=== PATIENT | female | born 1935 | race Caucasian/White ===

== ENCOUNTER 2018-10-21 11:04 | Inpatient (IN) ==
[2018-10-21 11:57] LABS: Apearance,Urine CLEAR (Clear); Bilirubin,Urine Negative (Negative); Blood, Urine Negative (Negative); Glucose,Urine (UA) Negative (Negative); Ketones,Urine 5 mg/dL (Negative); Mucus,Urine Occasional /LPF (Occasional); Nitrite,Urine Negative (Negative); Protein,Urine 30 MG/DL; RBC,Urine 1 /HPF (0-4); Urine Color Yellow (Yellow); Urine Specific Gravity 1.017 (1.001-1.035); WBC,Urine 1 /HPF (0-6)
[2018-10-21 13:08] LABS: Basophils # 0.1 10*3/uL (0.0-0.2); Basophils % 0.8 % (0.0-0.8); Eosinophils # 0.3 10*3/uL (0.0-0.87); Hematocrit 40.4 VOL% (35.7-47.0); Hemoglobin 11.3 GM/DL (12.0-16.0); Immature Granulocytes % 0.7 %; Immature Granulocytes Absolute 0.07 #; Lymphocytes # 1.9 10*3/uL (1.4-4.0); Lymphocytes % 18.4 % (21.3-54.2); Mean Corpuscular Hemoglobin 30 PG (27-34); Mean Corpuscular Volume 106.3 FL (87-102); Mean Platelet Volume 9.3 FL (9.6-12.0); Monocytes # 0.6 10*3/uL (0.11-0.8); Monocytes % 6.1 % (1.7-12.7); Neutrophils # 7.3 10*3/uL (1.4-7.4); Platelet Count 242 T/CUMM (130-400); White Blood Count 10.3 T/CUMM (4-12)
[2018-10-21 13:35] LABS: Anisocytosis Slight; Hypochromasia Slight; Platelet Estimate Adequate
[2018-10-21 13:46] LABS: Alanine Aminotransferase < 9 U/L (13-56); Albumin 3.2 G/DL (3.4-5.0); Alkaline Phosphatase 136 U/L (45-117); Aspartate Amino Transferase 16 U/L (0-37); Bilirubin,Total < 0.39 MG/DL (0.2-1.0); Blood Urea Nitrogen 30 MG/DL (7-18); Calcium 9.6 MG/DL (8.5-10.1); Glucose 129 MG/DL (74-106); Osmolality,Calculated 290.1 MOS/KG (273-304); Potassium 4.4 MMOL/L (3.5-5.1); Sodium 142 MMOL/L (136-145); Total Protein 7.5 G/DL (6.4-8.3); Troponin I < 0.015 NG/ML (0.00-0.045)
[2018-10-21] MEDS ORDERED: ONDANSETRON 4 MG/2 ML VIAL IV PRN (15:05)
[2018-10-21] MEDS ORDERED: DEXTROSE 50% 25 GM/50 ML VIAL IV PRN (15:23)
[2018-10-21] MEDS ORDERED: GLUCAGON 1 MG VIAL IM PRN (15:23)
[2018-10-21] MEDS ORDERED: hydrALAZINE 20 MG/1 ML VIAL IV STA (15:24)
[2018-10-21] MEDS ORDERED: cefTRIAXone 1,000 MG VIAL IM SCH (16:30)
[2018-10-21 16:51] LABS: PT Patient Result 10.8 SECS; Partial Thromboplastin Time 22.5 SECS (0-40)
[2018-10-21] MEDS ORDERED: hydrALAZINE 20 MG/1 ML VIAL IV PRN (17:10)
[2018-10-21] MEDS: ENOXAPARIN 40 MG/0.4 ML SYRINGE SUBCUT SCH (17:13)
[2018-10-21] MEDS: INSULIN LISPRO 100 UNIT/ML SUBCUT SCH ×2 (17:16→21:05)
[2018-10-21] MEDS: SODIUM CHLORIDE 0.45% 1,000 ML IV SCH (17:22)
[2018-10-21] MEDS ORDERED: cefTRIAXone 1,000 MG VIAL IV SCH (17:50)
[2018-10-21] MEDS: GENTAMICIN 0.3% OPH SOLN 5 ML BOTTLE BOTH EYES SCH ×2 (18:00→21:06)
[2018-10-21] MEDS ORDERED: GENTAMICIN 0.3% OPH SOLN 5 ML BOTTLE BOTH EYES SCH (18:00)
[2018-10-21] MEDS ORDERED: cefTRIAXone 1,000 MG in SYRINGE 1 EACH IV SCH (18:30)
[2018-10-22] MEDS: GENTAMICIN 0.3% OPH SOLN 5 ML BOTTLE BOTH EYES SCH ×5 (01:45→17:56)
[2018-10-22] MEDS: SODIUM CHLORIDE 0.45% 1,000 ML IV SCH (05:16)
[2018-10-22 05:40] LABS: Albumin 2.9 G/DL (3.4-5.0); Bilirubin,Total 0.8 MG/DL (0.2-1.0); Calcium 8.9 MG/DL (8.5-10.1); Osmolality,Calculated 284.5 MOS/KG (273-304); Potassium 3.9 MMOL/L (3.5-5.1); Risk Ratio 5.12; Total Protein 6.7 G/DL (6.4-8.3); VLDL CHOLESTEROL 34.2 MG/DL
[2018-10-22] MEDS: INSULIN LISPRO 100 UNIT/ML SUBCUT SCH ×3 (08:06→17:56)
[2018-10-22] MEDS ORDERED: LORazepam 1 MG TABLET PO ONE (11:08)
[2018-10-22] MEDS: ENOXAPARIN 40 MG/0.4 ML SYRINGE SUBCUT SCH (15:40)
[2018-10-22 17:51] VITALS: BP 156/91
== END 2018-10-22 16:33 | DRG 690 ==
LOC: EDUNIT# → EDBD → N.ED 11:04 → SUPCPDRO 14:57 → SUATTDRO 14:57 → N.EDINP 14:57 → N.4E 15:42
PROVIDERS: ADMIT Internal Medicine; ATTEND Internal Medicine Geriatric Medicine

== ENCOUNTER 2018-11-26 10:01 | Inpatient (IN) ==
[2018-11-26] MEDS ORDERED: SODIUM CHLORIDE 0.9% 1,000 ML IV STA ×3 (10:36→13:23)
[2018-11-26 11:27] LABS: Amorphous Crystals,Urine Few /HPF (Few); Apearance,Urine CLOUDY (Clear); Bacteria,Urine Occasional /HPF (Few); Bilirubin,Urine Negative (Negative); Blood, Urine Moderate mg/dL (Negative); Glucose,Urine (UA) 150 mg/dL (Negative); Hyaline Casts,Urine 3 /LPF (0-3); Ketones,Urine 5 mg/dL (Negative); Mucus,Urine Occasional /LPF (Occasional); Nitrite,Urine Negative (Negative); Protein,Urine >=500 MG/DL; Red Blood Cell Casts,Urine 3 /LPF (<1); Urine Color Yellow (Yellow); Urine Specific Gravity 1.019 (1.001-1.035); Urine Urobilinogen < 2.0 EU/DL (0.2-1.0)
[2018-11-26 12:09] LABS: INR 1.1; PT Patient Result 12.1 SECS; Partial Thromboplastin Time 22.4 SECS (0-40)
[2018-11-26 12:20] LABS: Alanine Aminotransferase 15 U/L (13-56); Albumin 3.1 G/DL (3.4-5.0); Alkaline Phosphatase 88 U/L (45-117); Aspartate Amino Transferase 12 U/L (0-37); Basophils # 0.1 10*3/uL (0.0-0.2); Basophils % 0.3 % (0.0-0.8); Bilirubin,Total < 0.39 MG/DL (0.2-1.0); Blood Urea Nitrogen 63 MG/DL (7-18); Calcium 8.9 MG/DL (8.5-10.1); Glucose 446 MG/DL (74-106); Hematocrit 39.6 VOL% (35.7-47.0); Hemoglobin 11.6 GM/DL (12.0-16.0); Immature Granulocytes % 1.2 %; Immature Granulocytes Absolute 0.23 #; Lymphocytes # 1.2 10*3/uL (1.4-4.0); Lymphocytes % 6.4 % (21.3-54.2); Mean Corpuscular HGB Conc 29.3 GM/DL (32-36); Mean Corpuscular Volume 101.8 FL (87-102); Mean Platelet Volume 10.9 FL (9.6-12.0); Monocytes % 5.6 % (1.7-12.7); NRBC # 0.04 10*3/uL; Neutrophils % 86.5 % (38.7-73.9); Platelet Count 265 T/CUMM (130-400); Red Blood Count 3.89 MC/CUMM (3.8-5.5); Red Cell Distribution Width 15.4 % (9.3-17.3); Total Protein 7.1 G/DL (6.4-8.3); White Blood Count 19.4 T/CUMM (4-12)
[2018-11-26] MEDS ORDERED: PIPERACILLIN/TAZOBACTAM 3,375 MG in SODIUM CHLORIDE 0.9% 100 ML IV STA (13:22)
[2018-11-26] MEDS: SODIUM CHLORIDE 0.9% 1,000 ML IV SCH ×2 (13:40→20:38)
[2018-11-26] MEDS ORDERED: MAGNESIUM SULF RIDER 4 GM in PREMIX 1 EACH IV PRN (15:06)
[2018-11-26] MEDS ORDERED: DEXTROSE 50% 25 GM/50 ML SYRINGE IV PRN (15:06)
[2018-11-26] MEDS ORDERED: MAGNESIUM SULF RIDER 2 GM in PREMIX 1 EACH IV PRN (15:06)
[2018-11-26] MEDS ORDERED: GLUCAGON 1 MG VIAL IM PRN (15:06)
[2018-11-26] MEDS ORDERED: SODIUM CHLORIDE 0.9% 3,800 ML IV ONE (15:06)
[2018-11-26 15:15] LABS: ABG Base Excess -3.4 MMOL/L (-2.5-2.5); ABG HCO3 21.5 MMOL/L (20-26); ABG Oxygen Saturation 92.4 % (95-100); ABG PCO2 37.6 MM HG (35-48); ABG PH 7.365 (7.35-7.45); ABG PO2 67.9 MM HG (80-95); ABG TCO2 19.3 MMOL/L (23-27)
[2018-11-26] MEDS ORDERED: LACTATED RINGERS 1,000 ML IV SCH (15:30)
[2018-11-26] MEDS ORDERED: INSULIN REGULAR 100 UNIT/ML IV ONE (15:48)
[2018-11-26] MEDS: HEPARIN 5,000 UNIT/1 ML VIAL SUBCUT SCH ×2 (16:00→22:52)
[2018-11-26] MEDS: PIPERACILLIN/TAZOBACTAM 3,375 MG in SODIUM CHLORIDE 0.9% 100 ML IV SCH ×2 (17:25→17:26)
[2018-11-26] MEDS: POTASSIUM CHLORIDE RIDER 10 MEQ in PREMIX 1 EACH IV PRN ×3 (17:47→19:32)
[2018-11-26] MEDS ORDERED: INSULIN REGULAR 100 UNIT/ML SUBCUT SCH (18:00)
[2018-11-26] MEDS: INSULIN REGULAR 100 UNIT/ML SUBCUT SCH ×2 (21:23→21:25)
[2018-11-27] MEDS: INSULIN REGULAR 100 UNIT/ML SUBCUT SCH ×7 (01:28→23:20)
[2018-11-27] MEDS: PIPERACILLIN/TAZOBACTAM 3,375 MG in SODIUM CHLORIDE 0.9% 100 ML IV SCH ×2 (01:29→12:17)
[2018-11-27] MEDS: SODIUM CHLORIDE 0.9% 1,000 ML IV SCH (01:35)
[2018-11-27 04:29] LABS: Alanine Aminotransferase 16 U/L (13-56); Albumin 2.9 G/DL (3.4-5.0); Alkaline Phosphatase 72 U/L (45-117); Aspartate Amino Transferase 12 U/L (0-37); Bilirubin,Total < 0.39 MG/DL (0.2-1.0); Blood Urea Nitrogen 59 MG/DL (7-18); Calcium 7.9 MG/DL (8.5-10.1); Glucose 219 MG/DL (74-106); Total Protein 6.4 G/DL (6.4-8.3)
[2018-11-27 04:55] LABS: Basophils # 0.1 10*3/uL (0.0-0.2); Basophils % 0.3 % (0.0-0.8); Hematocrit 38.1 VOL% (35.7-47.0); Hemoglobin 10.6 GM/DL (12.0-16.0); Immature Granulocytes % 0.9 %; Lymphocytes # 2.7 10*3/uL (1.4-4.0); Lymphocytes % 11.9 % (21.3-54.2); Mean Corpuscular HGB Conc 27.8 GM/DL (32-36); Mean Corpuscular Volume 106.7 FL (87-102); Mean Platelet Volume 11.4 FL (9.6-12.0); Monocytes % 4.2 % (1.7-12.7); NRBC # 0.03 10*3/uL; Neutrophils % 82.7 % (38.7-73.9); Platelet Count 199 T/CUMM (130-400); Red Blood Count 3.57 MC/CUMM (3.8-5.5); Red Cell Distribution Width 15.6 % (9.3-17.3); White Blood Count 22.5 T/CUMM (4-12)
[2018-11-27] MEDS: POTASSIUM CHLORIDE RIDER 10 MEQ in PREMIX 1 EACH IV PRN ×4 (04:58→10:01)
[2018-11-27 05:11] LABS: Free T4 (Free Thyroxine) 0.74 NG/DL (0.76-1.46); Thyroid Stimulating Hormone 2.12 uIU/ml (0.358-3.74)
[2018-11-27 06:39] LABS: Anisocytosis 1+; Lymphocytes 15 % (20-55); Platelet Estimate Adequate; Segmented Neutrophils 79 % (50-85); Total Cells Counted 100
[2018-11-27] MEDS ORDERED: DILTIAZEM 25 MG/5 ML VIAL IV ONE (08:09)
[2018-11-27] MEDS: HEPARIN 5,000 UNIT/1 ML VIAL SUBCUT SCH ×3 (08:25→22:42)
[2018-11-27] MEDS: LACTULOSE 20 GM/30 ML UDCUP NG SCH ×2 (08:57→20:08)
[2018-11-27] MEDS: DEXTROSE 5% 1,000 ML IV SCH (09:00)
[2018-11-27] MEDS ORDERED: POTASSIUM PHOSPHATE 30 MMOL in SODIUM CHLORIDE 0.9% 250 ML IV ONE (11:00)
[2018-11-27 12:56] LABS: Amorphous Crystals,Urine Occasional /HPF (Few); Apearance,Urine CLOUDY (Clear); Bacteria,Urine Few /HPF (Few); Bilirubin,Urine Negative (Negative); Blood, Urine Large mg/dL (Negative); Glucose,Urine (UA) Negative (Negative); Ketones,Urine Negative (Negative); Mucus,Urine Few /LPF (Occasional); Nitrite,Urine Negative (Negative); Protein,Urine 100 MG/DL; RBC,Urine 7 /HPF (0-4); Red Blood Cell Casts,Urine 13 /LPF (<1); Urine Color Yellow (Yellow); Urine Specific Gravity 1.017 (1.001-1.035); Urine Urobilinogen < 2.0 EU/DL (0.2-1.0); WBC,Urine 69 /HPF (0-6)
[2018-11-27] MEDS ORDERED: METOPROLOL TARTRATE 5 MG/5 ML VIAL IV ONE (18:50)
[2018-11-27] MEDS ORDERED: ADENOSINE 6 MG/2 ML VIAL ONE ×2 (19:06)
[2018-11-27] MEDS ORDERED: ADENOSINE 6 MG/2 ML VIAL IV ONE (19:46)
[2018-11-27] MEDS: dilTIAZem Drip 125 MG/125 ML PREMIX IV SCH (19:47)
[2018-11-27] MEDS ORDERED: SKIN HEALING OINT (AQUAPHOR) 50 GM TUBE TOP PRN (21:38)
[2018-11-27 21:44] LABS: Calcium 7.7 MG/DL (8.5-10.1); Osmolality,Calculated 344.2 MOS/KG (273-304)
[2018-11-28] MEDS: PIPERACILLIN/TAZOBACTAM 3,375 MG in SODIUM CHLORIDE 0.9% 100 ML IV SCH ×2 (00:59→13:47)
[2018-11-28] MEDS: INSULIN REGULAR 100 UNIT/ML SUBCUT SCH ×3 (04:38→13:47)
[2018-11-28 05:37] LABS: Albumin 2.6 G/DL (3.4-5.0); Bilirubin,Total 0.6 MG/DL (0.2-1.0); Calcium 7.7 MG/DL (8.5-10.1); Total Protein 6.1 G/DL (6.4-8.3)
[2018-11-28 05:40] LABS: Basophils # 0.1 10*3/uL (0.0-0.2); Basophils % 0.2 % (0.0-0.8); Hematocrit 37.1 VOL% (35.7-47.0); Hemoglobin 10.2 GM/DL (12.0-16.0); Immature Granulocytes % 1.2 %; Immature Granulocytes Absolute 0.25 #; Lymphocytes % 9.8 % (21.3-54.2); Mean Corpuscular HGB Conc 27.5 GM/DL (32-36); Mean Corpuscular Volume 107.8 FL (87-102); Mean Platelet Volume 11.9 FL (9.6-12.0); Monocytes % 3.1 % (1.7-12.7); NRBC # 0.02 10*3/uL; Neutrophils % 85.7 % (38.7-73.9); Platelet Count 191 T/CUMM (130-400); Red Blood Count 3.44 MC/CUMM (3.8-5.5); Red Cell Distribution Width 15.7 % (9.3-17.3); White Blood Count 20.8 T/CUMM (4-12)
[2018-11-28] MEDS: DEXTROSE 5% 1,000 ML IV SCH (05:55)
[2018-11-28 06:33] LABS: Nucleated Red Blood Cells 1 (0-5); Total Cells Counted 100
[2018-11-28 06:34] LABS: Hypochromasia 1+; Ovalocytes Slight; Platelet Estimate Adequate
[2018-11-28 06:37] LABS: Band Neutrophils 3 % (0-10); Lymphocytes 7 % (20-55); Segmented Neutrophils 90 % (50-85)
[2018-11-28] MEDS ORDERED: ADENOSINE 6 MG/2 ML VIAL ONE ×2 (09:29→09:32)
[2018-11-28] MEDS ORDERED: ADENOSINE 6 MG/2 ML VIAL IV ONE ×2 (09:30→09:34)
[2018-11-28 09:52] LABS: ABG Base Excess -4.4 MMOL/L (-2.5-2.5); ABG HCO3 20.8 MMOL/L (20-26); ABG Oxygen Saturation 99.6 % (95-100); ABG PCO2 38.2 MM HG (35-48); ABG PH 7.346 (7.35-7.45); ABG TCO2 18.9 MMOL/L (23-27); Allen Test Positive
[2018-11-28 10:18] LABS: Alanine Aminotransferase 19 U/L (13-56); Albumin 2.8 G/DL (3.4-5.0); Alkaline Phosphatase 66 U/L (45-117); Aspartate Amino Transferase 21 U/L (0-37); Bilirubin,Total < 0.39 MG/DL (0.2-1.0); Blood Urea Nitrogen 47 MG/DL (7-18); Calcium 7.6 MG/DL (8.5-10.1); Glucose 220 MG/DL (74-106); Osmolality,Calculated 338.3 MOS/KG (273-304); Total Protein 6.2 G/DL (6.4-8.3)
[2018-11-28 10:23] LABS: Basophils % 0.2 % (0.0-0.8); Eosinophils % 0.1 % (0.00-10.9); Hematocrit 36.5 VOL% (35.7-47.0); Hemoglobin 10.3 GM/DL (12.0-16.0); Immature Granulocytes % 0.9 %; Immature Granulocytes Absolute 0.15 #; Lymphocytes # 1.4 10*3/uL (1.4-4.0); Lymphocytes % 8.4 % (21.3-54.2); Mean Corpuscular HGB Conc 28.2 GM/DL (32-36); Mean Corpuscular Volume 105.2 FL (87-102); Mean Platelet Volume 11.4 FL (9.6-12.0); Monocytes % 2.9 % (1.7-12.7); NRBC # 0.04 10*3/uL; Neutrophils % 87.5 % (38.7-73.9); Platelet Count 172 T/CUMM (130-400); Red Blood Count 3.47 MC/CUMM (3.8-5.5); Red Cell Distribution Width 15.5 % (9.3-17.3)
[2018-11-28 10:32] LABS: Troponin I 0.092 NG/ML (0.00-0.045)
[2018-11-28 10:47] LABS: Macrocytosis Slight; Platelet Estimate Adequate
[2018-11-28] MEDS: HEPARIN 5,000 UNIT/1 ML VIAL SUBCUT SCH ×2 (10:55→15:47)
[2018-11-28] MEDS: LACTULOSE 20 GM/30 ML UDCUP NG SCH (10:56)
[2018-11-28] MEDS ORDERED: DEXTROSE 5% 1,000 ML IV SCH (11:10)
[2018-11-28] MEDS: dilTIAZem Drip 125 MG/125 ML PREMIX IV SCH (12:21)
[2018-11-28] MEDS ORDERED: MORPHINE 4 MG/1 ML VIAL IM PRN (13:35)
[2018-11-28] MEDS ORDERED: MORPHINE 4 MG/1 ML VIAL ONE (13:40)
[2018-11-28] MEDS ORDERED: MORPHINE 4 MG/1 ML VIAL IV PRN ×2 (13:52→14:28)
[2018-11-28] MEDS: fentaNYL 25 MCG/HR PATCH TRANSDERM SCH (15:52)
[2018-11-28] MEDS: MORPHINE 4 MG/1 ML VIAL IV PRN ×2 (15:54→16:41)
[2018-11-29] MEDS: LORazepam 2 MG/1 ML VIAL IV PRN ×3 (03:19→19:50)
[2018-11-30] MEDS: MORPHINE 4 MG/1 ML VIAL IV PRN ×6 (00:25→20:29)
[2018-11-30] MEDS: LORazepam 2 MG/1 ML VIAL IV PRN ×2 (05:34→07:37)
[2018-12-01] MEDS: MORPHINE 4 MG/1 ML VIAL IV PRN ×3 (00:40→10:59)
[2018-12-01] MEDS: fentaNYL 25 MCG/HR PATCH TRANSDERM SCH (10:59)
[2018-12-02 07:59] VITALS: BP 127/54
[2018-12-02] MEDS: MORPHINE 4 MG/1 ML VIAL IV PRN (08:48)
[2018-12-02] MEDS: LORazepam 2 MG/1 ML VIAL IV PRN (08:52)
== END 2018-12-02 17:39 | disposition expired | DRG 871 ==
LOC: EDUNIT# → EDBD → N.ED 10:01 → N.EDINP 13:22 → N.2E 14:34 → N.CC 16:09 → N.4E 12-01 12:19
PROVIDERS: ADMIT Internal Medicine; ATTEND Internal Medicine